=== PATIENT | male | born 1955 | race Caucasian/White ===

== ENCOUNTER 2017-04-15 14:43 | Emergency (ER) | payer MEDICAID ==
--- NOTE | 2017-04-15 14:47 | EDPHY ---
H & P HPI/ROS: HPI CHIEF COMPLAINT: Medical clearance for long-term, possible feet infection, possible lice HISTORY OF PRESENT ILLNESS: Patient very pleasant 61-year-old male he is homeless, he is here for medical clearance for long-term, presents for possible foot infection and bug infestation. Patient states that he may have bugs on him. Additionally he states that his feet are caked dirt possible feces. He does state his feet hurt him when he walks. He has no fever. He denies any significant past Past Medical History: Denies medical history denies taking any medications Past Surgical History: Denies surgical history Social History: States he has been home for 20 years. Family History: Noncontributory ROS REVIEW OF SYSTEMS: A comprehensive 10 point review of systems is otherwise negative aside from elements mentioned in the history of present illness. Exam Constitutional appears nontoxic, triage nursing summary reviewed, vital signs reviewed, awake/alert. Eyes normal conjunctivae and sclera, EOMI, PERRLA. HENT normal inspection, atraumatic, moist mucus membranes, no epistaxis, neck supple/ no meningismus, no raccoon eyes. Respiratory clear to auscultation bilaterally, normal breath sounds, no respiratory distress, no wheezing. Cardiovascular rate normal, regular rhythm, no murmur, no edema, distal pulses normal. Gastrointestinal soft, non-tender, no rebound, no guarding, normal bowel sounds, no distension, no pulsatile mass. Genitourinary no CVA tenderness. Musculoskeletal no midline vertebral tenderness, full range of motion, no calf swelling, no tenderness of extremities, no meningismus, good pulses, neurovascularly intact. Skin I do not appreciate any bugs on exam, pink, additionally bilateral feet there is dirt and possible feces caked in between his toes. There is some mild erythema to both of his feet. They. Mildly swollen. No crepitus. No signs of abscess. No pus. Neurologic awake, alert and oriented x 3, AAOx3, moves all 4 extremities equally, motor intact, sensory intact, CN II-XII intact, normal cerebellar, normal vision, normal speech. Psychiatric normal mood/affect. Heme/Lymph/Immune no lymphadenopathy. Differential Diagnosis: Includes but is not limited to in a particular order bilateral feet cellulitis, bilateral foot infection, possible bug infestation Medical Decision Making: Plan for this patient will start on Keflex, clean his feet soaked with warm soapy water and lateral clean them, additionally recommend De con shower and possible permethrin cream. Source: Patient, Police - Medical/Surgical History Hx Asthma: No Hx Chronic Respiratory Disease: No Hx Diabetes: No Hx Cardiac Disease: No Hx Renal Disease: No Hx Cirrhosis: No Hx Alcoholism: Yes Hx HIV/AIDS: No Hx Splenectomy or Spleen Trauma: No Other PMH: ETOH abuse, L eye cataracts - Social History Smoking Status: Current every day smoker Allergies/Adverse Reactions: No Known Allergies Allergy (Unverified 08/19/15 22:22) Home Medications: Medication Instructions Recorded Cephalexin [Keflex] 500 mg PO Q6H #28 cap 04/15/17 Departure - Departure Disposition: Home, Routine, Self-Care Clinical Impression: Cellulitis Qualifiers: Site of cellulitis: extremity Site of cellulitis of extremity: lower extremity Laterality: unspecified laterality Qualified Code(s): L03.119 - Cellulitis of unspecified part of limb Condition: Good Instructions: Cellulitis (ED) Additional Instructions: 1. Medically cleared for long-term. 2. Keflex as prescribed. 3. Return to the emergency room if worsening symptoms questions or concerns. Prescriptions: Cephalexin [Keflex] 500 mg PO Q6H #28 cap
[2017-04-15] MEDS ORDERED: CEPHALEXIN 500 MG CAP PO ONE (14:56)
[2017-04-15] MEDS ORDERED: PERMETHRIN 5% 60 GM CREAM TP ONE (14:56)
== END 2017-04-15 16:00 | disposition home or self-care (01) ==
DX: L03.119 Cellulitis of unspecified part of limb (principal); F17.200 Nicotine dependence, unspecified, uncomplicated

== ENCOUNTER 2017-06-08 18:35 | Emergency (ER) | payer MEDICAID ==
--- NOTE | 2017-06-08 18:53 | EDPHY ---
H & P Time Seen by Provider: 06/08/17 18:39 HPI/ROS: CHIEF COMPLAINT: Alcohol intoxication HISTORY OF PRESENT ILLNESS: 61-year-old homeless male presents to the emergency department by ambulance with acute alcohol intoxication. The patient admits to drinking alcohol today. Denies any other illicit drug use. No reported trauma. He currently has no complaints. Denies a headache. Denies neck or back pain. Denies chest pain or difficulty breathing. He denies abdominal pain, vomiting or diarrhea. REVIEW OF SYSTEMS: Constitutional: No fever, no chills. Eyes: No double or blurry vision. ENT: No sore throat. Respiratory: No cough, no shortness of breath. Cardiac: No chest pain. Gastrointestinal: No abdominal pain, vomiting or diarrhea. Genitourinary: No dysuria. Musculoskeletal: No neck or back pain. Skin: No rashes. Neurological: No headache. Past Medical/Surgical History: Alcoholism Social History: Homeless Smoking Status: Current every day smoker Physical Exam: General Appearance: Alert, no distress. Smells strongly of alcohol. No visible signs of trauma to his head. Eyes: Pupils equal and round. Extraocular motions are all intact. ENT: Mouth: Mucous membranes moist. Respiratory: No wheezing, rhonchi, or rales, lungs are clear to auscultation. Cardiovascular: Regular rate and rhythm. Gastrointestinal: Abdomen is soft and nontender, no masses, no rebound or guarding, bowel sounds normal. Neurological: Uncooperative, cannot determine. Skin: Warm and dry, no rashes. Musculoskeletal: Nontender to palpate along the cervical, thoracic or lumbar spine. Neck is supple. Extremities: Full range of motion and no peripheral edema. Psychiatric: no agitation. Constitutional: Initial Vital Signs Heart Rate 81 06/08/17 20:08 Respiratory Rate 16 06/08/17 20:08 Blood Pressure 114/62 06/08/17 20:08 O2 Sat (%) 94 06/08/17 20:08 O2 Delivery Mode Room Air Allergies/Adverse Reactions: No Known Allergies Allergy (Unverified 08/19/15 22:22) Home Medications: Medication Instructions Recorded NK [No Known Home Meds] 06/08/17 Medical Decision Making ED Course/Re-evaluation: 61-year-old homeless male presents to the emergency department with acute alcohol intoxication. No visible signs of trauma. The was observed for several hours in the emergency department without incident. He was able to ambulate upon discharge and will be discharged to the addiction [facility]. Differential Diagnosis: Altered mental status including but not limited to hypoglycemia, infectious process, electrolyte abnormality, head injury and intoxicants. Departure - Departure Disposition: Home, Routine, Self-Care Clinical Impression: Alcoholic intoxication Qualifiers: Complication of substance-induced condition: uncomplicated Qualified Code(s): F10.920 - Alcohol use, unspecified with intoxication, uncomplicated Condition: Good Instructions: Alcohol Intoxication (ED), Chlordiazepoxide (By mouth) Additional Instructions: You should not drink alcohol in excess. Referrals: [facility] [Outside] - As per Instructions
[2017-06-08 20:09] VITALS: RESP 16
[2017-06-08 22:42] VITALS: BP 116/62; PULSE 72; O2SAT 92
[2017-06-08] MEDS ORDERED: CHLORDIAZEPOXIDE 25MG PREPK#6 BTL TAKEHOME ONE (23:04)
== END 2017-06-08 23:26 | disposition home or self-care (01) ==
LOC: EDUNIT#
DX: F10.920 Alcohol use, unspecified with intoxication, uncomplicated (principal); F17.200 Nicotine dependence, unspecified, uncomplicated

== ENCOUNTER 2018-04-21 15:37 | Inpatient (IN) | payer MEDICAID ==
[2018-04-21] MEDS ORDERED: TDAP ADULT 0.5 ML INJ (BOOSTRIX) IM ONE (17:19)
--- NOTE | 2018-04-21 17:25 | EDPHY ---
General - History Smoking Status: Current every day smoker Time Seen by Provider: 04/21/18 17:05 Narrative: CLINICAL IMPRESSION: Osteomyelitis of the phalanges of the right foot ASSESSMENT/PLAN: 62-year-old homeless alcoholic male presents to the emergency department with 1 month of right foot pain, and necrosis of the right 1st through 4th toes in the last 2 weeks. Patient reports intact although slightly diminished sensation to the toes. He reports inflammation and redness through the of right forefoot. No associated fever or chills. He is homeless, sleeps outside and ambulates regularly. No history of diabetes or prior osteomyelitis or amputation. Vital signs stable, no tachycardia, fever, or sign of sepsis. On exam, patient has necrosis to the volar pad of 1st through 3rd digits of the right foot with circumferential ulcerative tissue. Redness and swelling extending through the MTPs and forefoot associated with tenderness to palpation. Patient reports intact sensation to the toes including necrotic tissue. X-rays concerning for osteomyelitis, follow-up MRI confirms osteomyelitis. Please see radiology report below. Patient has an elevated sed rate to 52, normal CRP, no leukocytosis. He was seen in the emergency department and examined by Dr. Nieto who removed debrided tissue. IV antibiotics initiated in the ED and plan to elevate the foot, cover wounds with Bactroban, and determine if infection will improve with IV antibiotics versus obtaining orthopedic consultation for possible Lisfranc amputation. Patient was stabilized in the ED and admitted to the hospitalist service. Discussed with Dr. Mackey DIFFERENTIAL DX: Differential includes but not limited to acute necrotic frostbite, trench foot, osteomyelitis ED PROCEDURES: See lab and/or imaging results below ED COURSE: 5:20 p.m. patient seen examined by myself. Plan for x-ray, labs, surgical consultation. Will update patient's tetanus. 5:40 p.m.. Preliminary review of x-rays by myself with possible osteo noted to the distal right 2nd and 4th phalanx. 6:00 p.m.: Patient updated on x-ray results. MRI ordered. Patient requesting pain medication. No allergies reported. 6:15 p.m.: Labs reviewed. Sed rate 52, CRP 6, no leukocytosis, mild hyponatremia without symptoms. Awaiting MRI. Will consult Dr. Nieto. 6:25 p.m.: Case discussed with Dr. Nieto who is in the emergency department and will assess the patient. MRI discussed with Dr. Roberts, positive for osteomyelitis of the distal and middle phalanx of digits 1 through 4 on the right foot. Discussed with Dr. Nieto and hospitalist for admission. IV vancomycin ordered. Dr. Muñoz asked patient to admit to Dr. Mcgregor. CHIEF COMPLAINT: Frostbite right foot HPI: This is a 62-year-old homeless gentleman presenting to the emergency department with frostbite to the right 1st through 3rd toes. Patient reports he developed pain and swelling to these toes and the foot approximately 1 month ago. He was not seen by anyone. Two weeks ago he began noticing black discoloration to the tips of toes 1 through 3. His friend convinced him to come to the ER today. He reports no prior history of severe frostbite or amputation. He reports no history of diabetes. He currently takes no medications. He stopped drinking 2 weeks ago. He has been walking daily. He is not currently working. He does not know if his tetanus is up-to-date. He reports sensation to the toes and states sometimes "they feel like they are on fire". No reported numbness. No fevers, chills, red streaks up the legs, palpitations nausea or vomiting. PAST MEDICAL HISTORY: None reported See nurse/triage notes for additional history if applicable Pertinent Past Surgical History: None reported Family History: Noncontributory Social History: Homeless, sleeps outside, reports he quit drinking 2 weeks ago REVIEW OF SYSTEMS: All other systems negative Constitutional: No fever, no chills, appetite change. Cardiovascular: No chest pain, no palpitations. Respiratory: No cough, no shortness of breath. Gastrointestinal: No abdominal pain, no vomiting, diarrhea. Musculoskeletal: No back pain, positive for joint swelling, positive for joint pain, myalgias. Skin: No rashes, positive for color change. Neurological: No headache, dizziness, weakness. PHYSICAL EXAM: General Appearance: Alert, oriented, appropriate, cooperative, homeless, filthy , foul-smelling feet, NAD, well hydrated, non-toxic appearing, VSS, no hypoxia. Respiratory: There are no retractions, lungs are clear to auscultation. Cardiac: Regular rate and rhythm, no murmurs or gallops. Gastrointestinal: Abdomen is soft, nontender, bowel sounds normal, no masses/ hernia, no rigidity, guarding or focal peritoneal findings. Neurological: [ Alert and oriented x 3, patient reports intact sensation to right foot and all toes. Skin: Tissue necrosis noted to the volar pads of toes 1 through 3 on the right foot. Patient reports associate sensation to light touch and discomfort to palpation. Necrotic area is surrounded by shallow ulcers with erythema and purulent discharge. Cap refill 2 sec in all toes of both feet. No active bleeding. No lymphangitis. Posterior tibialis and pedal pulses intact bilaterally. No evidence of frostbite injury to the left foot. Right foot generally appears more swollen than left. Patient reports pain extending all the way to the MTP joints on the bottom of the foot. Musculoskeletal: Extremities are symmetrical, full range of motion, see above findings Psychiatric: Patient is oriented X 3, there is no agitation. MEDICAL DECISION MAKING: Patient was seen independently. Secondary supervising physician at time of evaluation was Dr. Mackey . Diagnosis: Osteomyelitis, toes of right foot. New, requires workup Summary: See Assessment and Plan for summary of ED visit Clinical lab tests: ordered / reviewed. Independent visualization of images, tracing, or specimens: Yes. Decision to obtain medical records or history from someone other than the patient: No Review / Summarize previous medical records: No Discussed patient with another provider: Dr. Mackey, Dr. Nieto, hospitalist, radiology Patient Progress: Stable for admission. (Nash Antony) Medical Decision Making: I did not see this patient while he was in the emergency department. However his care was discussed with the PA while the patient was in the department. I agree with treatment plan and management (Chau Mackey) - Diagnostics Imaging Results: Imaging Impressions Foot X-Ray 04/21/18 17:19 Impression: Equivocal evidence for a small area of osteomyelitis involving the second distal phalanx possible osteomyelitis of the fourth distal phalanx. - Objective Vital Signs: Initial Vital Signs Temperature (C) 36.3 C 04/21/18 15:44 Heart Rate 85 04/21/18 15:44 Respiratory Rate 16 04/21/18 15:44 Blood Pressure 138/83 H 04/21/18 15:44 O2 Sat (%) 95 04/21/18 15:44 O2 Delivery Mode Room Air Allergies/Adverse Reactions: No Known Allergies Allergy (Verified 04/21/18 20:54) Home Medications: Medication Instructions Recorded NK [No Known Home Meds] 06/08/17 Laboratory Results: Laboratory Results 04/21/18 17:40 04/21/18 17:40 04/21/18 04/21/18 17:40 17:40 WBC 8.10 10^3/uL 10^3/uL (3.80-9.50) RBC 4.59 10^6/uL 10^6/uL (4.40-6.38) Hgb 11.0 g/dL L g/dL (13.7-17.5) Hct 35.5 % L % (40.0-51.0) MCV 77.3 fL L fL (81.5-99.8) MCH 24.0 pg L pg (27.9-34.1) MCHC 31.0 g/dL L g/dL (32.4-36.7) RDW 20.0 % H % (11.5-15.2) Plt Count 347 10^3/uL 10^3/uL (150-400) MPV 9.2 fL fL (8.7-11.7) Neut % (Auto) 64.3 % % (39.3-74.2) Lymph % (Auto) 25.9 % % (15.0-45.0) Catron % (Auto) 7.4 % % (4.5-13.0) Eos % (Auto) 1.6 % % (0.6-7.6) Baso % (Auto) 0.7 % % (0.3-1.7) Nucleat RBC Rel Count 0.0 % % (0.0-0.2) Absolute Neuts (auto) 5.20 10^3/uL 10^3/uL (1.70-6.50) Absolute Lymphs (auto) 2.10 10^3/uL 10^3/uL (1.00-3.00) Absolute Monos (auto) 0.60 10^3/uL 10^3/uL (0.30-0.80) Absolute Eos (auto) 0.13 10^3/uL 10^3/uL (0.03-0.40) Absolute Basos (auto) 0.06 10^3/uL 10^3/uL (0.02-0.10) Absolute Nucleated RBC 0.00 10^3/uL 10^3/uL (0-0.01) Immature Gran % 0.1 % % (0.0-1.1) Immature Gran # 0.01 10^3/uL 10^3/uL (0.00-0.10) ESR 52 MM/HR H MM/HR (0-20) Sodium 132 mEq/L L mEq/L (135-145) Potassium 5.2 mEq/L mEq/L (3.5-5.2) Chloride 99 mEq/L mEq/L (97-110) Carbon Dioxide 25 mEq/l mEq/l (22-31) Anion Gap 8 mEq/L mEq/L (6-14) BUN 13 mg/dL mg/dL (7-23) Creatinine 0.8 mg/dL mg/dL (0.7-1.3) Estimated GFR > 60 Glucose 89 mg/dL mg/dL (70-100) Calcium 9.5 mg/dL mg/dL (8.5-10.4) C-Reactive Protein 6.0 mg/L mg/L (<10.0) Medications Given: Vancomycin HCl 2 gm/ Sodium (Chloride) 500 mls @ 250 mls/hr IV EDNOW ONE PRN Reason: Protocol Stop: 04/21/18 22:39 Last Admin: 04/21/18 20:47 Dose: 500 mls Discontinued Medications Diphtheria/Tetanus/Acell Pertussis (Boostrix) 0.5 ml IM .ONCE ONE Stop: 04/21/18 17:20 Last Admin: 04/21/18 17:38 Dose: 0.5 ml Fentanyl (Sublimaze) 50 mcg IVP EDNOW ONE Stop: 04/21/18 18:01 Last Admin: 04/21/18 18:28 Dose: 50 mcg Fentanyl (Sublimaze) 100 mcg IVP EDNOW ONE Stop: 04/21/18 20:39 Last Admin: 04/21/18 20:42 Dose: 100 mcg Ketorolac Tromethamine (Toradol) 15 mg IVP EDNOW ONE Stop: 04/21/18 18:01 Last Admin: 04/21/18 18:28 Dose: 15 mg
[2018-04-21 17:55] LABS: PLATELET COUNT 347 10^3/uL (150-400)
[2018-04-21] MEDS ORDERED: KETOROLAC 15 MG/1 ML SDV IVP ONE (18:00)
[2018-04-21] MEDS ORDERED: fentaNYL 100 MCG/2 ML INJ IVP ONE ×2 (18:00→20:38)
[2018-04-21] MEDS ORDERED: GADOBUTROL 10 ML VIAL IVP ONE (19:14)
[2018-04-21] MEDS ORDERED: VANCOMYCIN 2 GM in NS 500 ML IV ONE (20:40)
[2018-04-21] MEDS ORDERED: VANCOMYCIN 1 GM/NS 250 ML BAG IV ONE ×2 (20:40→20:41)
--- NOTE | 2018-04-21 21:49 | GCON ---
[f rep st] CONSULTATION REFERRING PHYSICIAN: HEATHER MILLER PA-C HISTORY: The patient is a 62-year-old male smoker, who is homeless. He presents to the emergency department with mummification of the tips of the 1st through 3rd toes. He says he developed pain in the toes approximately 1 month ago, and he has not been seen for evaluation. A friend convinced him to come to the ER today. There is no history of diabetes. He is not currently taking medications. He did stop drinking 2 weeks ago. He did smoke 1 cigarette a day. PHYSICAL EXAMINATION: There is a large, necrotic, foul-smelling tip of his right great toe. By x-ray, there is gas in the tissue. The distal toe and phalanx are easily amputated at the bedside at the distal interphalangeal joint. Minimal blood loss occurs. There is good capillary refill noted. This wound is dressed with topical antibiotic and a dry dressing. The 2nd digit also was easily amputated at the level of the distal interphalangeal joint. Again, a topical antibiotic was used. The 3rd digit appears to have some tissue loss but not to the same extent. It is not further debrided at this point. An MRI has been performed, which shows osteo of the distal phalanx of digits 1-4 ; middle digit phalanx 2, 3 and 4; and proximal phalanx 2 and 3. I recommend that we push his oxygen saturations to 98%, that we use topical Bactroban for its penetration abilities, that we use IV antibiotics (I will defer to Infectious Disease). I would like to save as much of the forefoot for him as we can, but I am afraid he may need an amputation at the level of metatarsals for definitive treatment and closure. I will not make that move yet. We will wait to see how he declares himself with the antibiotic therapy as I am concerned that he will need to walk on this foot before complete healing occurs resulting in an infection/return for more proximal amputation. /[id number]/MODL MTDD
[2018-04-21] MEDS ORDERED: ACETAMINOPHEN 325 MG TAB PO PRN (22:30)
[2018-04-21] MEDS ORDERED: ONDANSETRON 4 MG/2 ML VIAL IVP PRN (22:30)
[2018-04-21] MEDS ORDERED: ONDANSETRON DISINTEGRATING 4 MG TAB PO PRN (22:30)
--- NOTE | 2018-04-22 05:19 | PDGENHP ---
History and Physical - Chief Complaint Foot pain - History of Present Illness 62 yo M, homeless M presents with R foot pain. He has been suffering from pain to the toes of R foot for several weeks. He denies PMHx and takes no medications. He tells me he tried to get evaluated as an outpatient but could not get seen at a clinic. On arrival several of his R foot toes appear infected and necrotic. XR and MRI were concerning for osteomyelitis. He was evaluated by Dr. Nieto of general surgery who I&D his foot at bedside. The patient himself denies fevers and chills. His only complaint at the moment is R foot pain. He is being admitted for IV antibiotics and ID consultation. Case discussed with ED TROY Antony; records reviewed and summarized above. History Information - Allergies/Home Medication List Allergies/Adverse Reactions: No Known Allergies Allergy (Verified 04/21/18 20:54) Home Medications: NK [No Known Home Meds] 06/08/17 [Last Taken Unknown] I have personally reviewed and updated: medical history - Past Medical History no pertinent PMH - Surgical History Additional surgical history: L 3rd finger distal amputation. L leg fracture - Family History Additional family history: Asked, denies - Social History Smoking Status: Current every day smoker Review of Systems Review of Systems: ROS: 10pt was reviewed & negative except for what was stated in HPI & below Physical Exam Physical Exam: Temp Pulse Resp BP Pulse Ox 36.3 C 68 16 119/96 H 99 04/21/18 15:44 04/22/18 03:25 04/22/18 03:25 04/21/18 22:17 04/22/18 03:25 O2 (L/minute) 2 Constitutional: uncomfortable, unkempt Eyes: PERRL, EOMI Ears, Nose, Mouth, Throat: no oral mucosal ulcers Cardiovascular: regular rate and rhythym, no murmur, rub, or gallop Respiratory: no respiratory distress, clear to auscultation Gastrointestinal: normoactive bowel sounds, soft, non-tender abdomen Skin: warm, other (R foot toes bandaged) Musculoskeletal: full muscle strength, no muscle tenderness Neurologic: AAOx3, CN II-XII Intact Psychiatric: interacting appropriately, not anxious Lab Data & Imaging Review 04/21/18 17:40 04/21/18 17:40 WBC 8.10 10^3/uL (3.80-9.50) 04/21/18 17:40 RBC 4.59 10^6/uL (4.40-6.38) 04/21/18 17:40 Hgb 11.0 g/dL (13.7-17.5) L 04/21/18 17:40 Hct 35.5 % (40.0-51.0) L 04/21/18 17:40 MCV 77.3 fL (81.5-99.8) L 04/21/18 17:40 MCH 24.0 pg (27.9-34.1) L 04/21/18 17:40 MCHC 31.0 g/dL (32.4-36.7) L 04/21/18 17:40 RDW 20.0 % (11.5-15.2) H 04/21/18 17:40 Plt Count 347 10^3/uL (150-400) 04/21/18 17:40 MPV 9.2 fL (8.7-11.7) 04/21/18 17:40 Neut % (Auto) 64.3 % (39.3-74.2) 04/21/18 17:40 Lymph % (Auto) 25.9 % (15.0-45.0) 04/21/18 17:40 [place] % (Auto) 7.4 % (4.5-13.0) 04/21/18 17:40 Eos % (Auto) 1.6 % (0.6-7.6) 04/21/18 17:40 Baso % (Auto) 0.7 % (0.3-1.7) 04/21/18 17:40 Nucleat RBC Rel Count 0.0 % (0.0-0.2) 04/21/18 17:40 Absolute Neuts (auto) 5.20 10^3/uL (1.70-6.50) 04/21/18 17:40 Absolute Lymphs (auto) 2.10 10^3/uL (1.00-3.00) 04/21/18 17:40 Absolute Monos (auto) 0.60 10^3/uL (0.30-0.80) 04/21/18 17:40 Absolute Eos (auto) 0.13 10^3/uL (0.03-0.40) 04/21/18 17:40 Absolute Basos (auto) 0.06 10^3/uL (0.02-0.10) 04/21/18 17:40 Absolute Nucleated RBC 0.00 10^3/uL (0-0.01) 04/21/18 17:40 Immature Gran % 0.1 % (0.0-1.1) 04/21/18 17:40 Immature Gran # 0.01 10^3/uL (0.00-0.10) 04/21/18 17:40 ESR 52 MM/HR (0-20) H 04/21/18 17:40 Sodium 132 mEq/L (135-145) L 04/21/18 17:40 Potassium 5.2 mEq/L (3.5-5.2) 04/21/18 17:40 Chloride 99 mEq/L (97-110) 04/21/18 17:40 Carbon Dioxide 25 mEq/l (22-31) 04/21/18 17:40 Anion Gap 8 mEq/L (6-14) 04/21/18 17:40 BUN 13 mg/dL (7-23) 04/21/18 17:40 Creatinine 0.8 mg/dL (0.7-1.3) 04/21/18 17:40 Estimated GFR > 60 04/21/18 17:40 Glucose 89 mg/dL (70-100) 04/21/18 17:40 Calcium 9.5 mg/dL (8.5-10.4) 04/21/18 17:40 C-Reactive Protein 6.0 mg/L (<10.0) 04/21/18 17:40 Imaging Review: Imaging Impressions Foot X-Ray 04/21/18 17:19 Impression: Equivocal evidence for a small area of osteomyelitis involving the second distal phalanx possible osteomyelitis of the fourth distal phalanx. Assessment & Plan Assessment: 62 yo M presents with osteomyelitis of the R foot. Plan: 1. R foot osteomyelitis - XR and MRI suggestive of osteomyelitis in various toes of the R foot. He is now s/p I&D by Dr. Nieto of general surgery. He denies systemic symptoms at this time. - Started on vancomycin in the ED; will continue - ID consultation placed - Appreciate general surgery consultation - Blood cultures ordered 2. Hyponatremia - Mild, monitor BMP. 3. Microcytic anemia - No evidence of acute bleeding. - Will check ferritin - Monitor CBC 4. Hx methamphetamine use - Denies recent use Diet - Regular Code - Full Ppx - SCDs Dispo - Admit under inpatient status
[2018-04-22 06:54] LABS: PLATELET COUNT 290 10^3/uL (150-400)
--- NOTE | 2018-04-22 09:00 | PDCONSULT ---
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 Good pink granulating tissue noted this morning. Plan: ID to see. Hope to optimize care with topical Bactroban and IV antibiotics. If osteo can be effectively treated, it would be optimal. In the short term, decreasing local infection will optimize foot for amputation success. Follow CRP,CBC No nicotine. Elevate foot. Push SAT to 98%
[2018-04-22] MEDS: oxyCODONE IR 5 MG TAB PO PRN ×3 (09:25→21:21)
--- NOTE | 2018-04-22 10:39 | PDMN ---
Medical Necessity Medical necessity: Pt meets IP criteria as of 04/21/2018 per and MCG M-600 ( osteomyelitis); est los > 2 mn for ongoing tx and management of R foot osteomyelitis in the setting of homelessness and ETOH abuse; likely requiring amputation, but surgical team has done a bedside I&D and would like to try IV ABX first, also requiring ID consultation, wound care, serial labs and pain control.
--- NOTE | 2018-04-22 12:24 | ASMTCMCOM ---
CM Note CM Note Notes: Patient sent to ED by [facility] RN for possible osteomyelitis. ED report confirms this. Bedside I&D and excision on mummified distal phalanx digits 1&2 performed. ID, Surgery, and perhaps Ortho to see. [place] of foot TBD. I spoke with patient. He reports he's been sleeping outside for 20 years. He has not engaged w any sheltering services d/t rumors of bedbugs ([facility]) and thieves ([facility]). He would rather sleep outside in the places he's established. He notes Francis at [facility] as someone he trusts, and he also is known to the [facility] HOT officer [place]. Regarding his current condition, he does not feel that it will be a problem to manage his foot on the streets. He also reports that he is to have cataract surgery soon. I suggested that a SNF might be perfect to give him time to rehab his foot and his eyes. He was not interested. He seems deeply distrustful of homeless services. Case Management will continue to offer resources to patient; otherwise, we will ensure that he has what he needs to return to the streets. Date Signed: 04/22/2018 12:23 PM Electronically Signed By:Amanda Rod RN
[2018-04-22] MEDS: MUPIROCIN 2% 22 GM OINT TP SCH ×3 (13:40→21:18)
--- NOTE | 2018-04-22 15:10 | PDCONSULT ---
Speech Pathology Supervisor Note: Infectious Diseases Consult Note Impression: 62-year-old man with multiple digits of the right foot with chronic osteomyelitis. He underwent amputation of that clearly necrotic regions yesterday. Will continue therapy with oral Bactrim and monitor his electrolytes daily to ensure tolerance. With those homeless status this is an antibiotic these likely be going to be able to obtain to complete therapy. 1. Right great toe, right 2nd toe, right 4th toe distal osteomyelitis and necrosis 2. 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 Status post right 2nd toe distal phalanx amputation 04/21/2018 4. Homelessness Plan: 1. Start Bactrim 2 double strength twice daily 2. Check daily electrolytes to ensure hyperkalemia does not develop Phu Guadarrama MD Infectious Diseases Chief Complaint: Necrotic toes on right foot Requesting Provider: Dr. Mcgregor Reason for Referral: Consultation was requested by Dr. Mcgregor regarding antimicrobial management. HPI: 62-year-old man who presented to the emergency department approximately 2 weeks after the onset of right foot pain on the plantar aspect of his foot. He knows that he had no issues with his right foot prior to 2 weeks ago. He notes progressive worsening of the pain in the right foot with ambulation, even to the point where it was painful at rest. He does not recall precisely when he noted the ends of his right great toe in his right 2nd toe developed a black area over the end. He notes he had been wearing leather boots without ventilation so does not suspect that this was related to frostbite. He notes no fevers, chills, or night sweats leading up to admission. He has not taken any antibiotics in the last 60 days. But he does state he took large antibiotic pills for skin infection on his arm sometime in the last year. He underwent debridement of the right foot in the emergency department with amputation of the distal phalanx and distal great toe, S 2nd toe amputated at the distal interphalangeal joint. He notes minimal pain today after undergoing those procedures. He has no other complaints today. Past Medical History: No chronic medical conditions for which he takes medications Past Surgical History: Left leg orthopedic fixation of a compound fracture; no surgeries to the right foot prior to this admission Social History: Stop drinking alcohol approximately 2 weeks before admission, smokes occasional cigarette, both smokes and ingests marijuana products, no IV drug use; he is homeless Family History: No family members with recurrent infections Allergies: NKDA Medications: Reviewed in medical record and confirmed with patient. ROS: 10 organ systems reviewed; pertinent positives and negatives listed in the HPI, all other organ systems negative. Physical Exam: VS: Reviewed Gen: No acute distress; Breathing comfortably without exogenous oxygen; Able to speak in complete sentences Eyes: No conjunctival injection; No scleral icterus HENT: No gross deformities Neck: No limitation in range of motion Pulm: Breath sounds clear to the bases bilaterally; No wheeze, rhonchi, or rales CV: Normal S1 and S2; Regular rate and rhythm; No murmurs, rubs, or gallops; No lower extremity edema Abd: Not distended; Normo-active bowel sounds; Soft; Non-tender Skin: A full skin exam including exposed bilateral upper extremities, bilateral lower extremities to the knees, face, neck, abdomen, chest, and back performed; Skin intact, warm, with no rash MSK: Joints without erythema or edema; No gross limitation in range of motion; right foot surgical dressing not taken down Ext: No clubbing or cyanosis Neuro: Awake and alert Psych: Normal mood and affect Labs/Imaging: All microbiology testing (culture and non-culture) reviewed in the medical record. Personally reviewed and interpreted the images of the following radiographs: Right foot x-ray showing likely osteomyelitis of the distal phalanx of the 2nd and 4th toes, soft tissue edema of the right great toe. Medications Generic Name Dose Route Start Last Admin Trade Name Freq PRN Reason Stop Dose Admin Trimethoprim/Sulfamethoxazole 2 ea 04/22/18 21:00 Bactrim Ds PO 05/22/18 20:59 BID NOBLE Protocol Discontinued Medications Generic Name Dose Route Start Last Admin Trade Name Freq PRN Reason Stop Dose Admin Vancomycin HCl 2 gm/ Sodium 500 mls @ 250 mls/hr 04/21/18 20:40 04/21/18 20: 47 Chloride IV 04/21/18 22:39 500 mls EDNOW ONE Protocol Vancomycin/Sodium Chloride Confirm 04/21/18 20:40 Vancomycin 1 Gm (Premix) Administered 04/21/18 20:41 Dose 1 gm IV .STK-MED ONE Vancomycin/Sodium Chloride Confirm 04/21/18 20:41 Vancomycin 1 Gm (Premix) Administered 04/21/18 20:42 Dose 1 gm IV .STK-MED ONE Laboratory Tests 04/21/18 04/21/18 04/22/18 17:40 17:40 06:30 WBC 8.10 5.68 Hgb 11.0 L 10.1 L Plt Count 347 290 Absolute Neuts (auto) 5.20 3.17 Absolute Lymphs (auto) 2.10 1.68 ESR 52 H Creatinine 0.8 Ferritin C-Reactive Protein 6.0 04/22/18 06:30 WBC Hgb Plt Count Absolute Neuts (auto) Absolute Lymphs (auto) ESR Creatinine 0.8 Ferritin 13.9 L C-Reactive Protein Ongoing monitoring for antimicrobial toxicity with: CBC, BMP.
[2018-04-22] MEDS ORDERED: hydrALAZINE 20 MG/ML VIAL IVP PRN (15:26)
--- NOTE | 2018-04-22 15:57 | HOSPPROG ---
Hospitalist Progress Note Assessment/Plan: 62 yo M presents with osteomyelitis of the R foot. Plan: 1. R foot osteomyelitis - XR and MRI suggestive of osteomyelitis in various toes of the R foot. He is now s/p I&D by Dr. Nieto of general surgery. He denies systemic symptoms at this time. - Started on vancomycin in the ED; stopped by ID, started on bactrim 2 tabs po bid. - ID consulted, who recommends bactrim, monitor cultures. - Appreciate general surgery consultation - Blood cultures ordered -monitor K while on high dose bactrim. 2. Hyponatremia - Mild, monitor BMP. 3. Microcytic anemia - No evidence of acute bleeding. - Will check ferritin - Monitor CBC 4. Hx methamphetamine use - Denies recent use Diet - Regular Code - Full Ppx - SCDs Dispo - Admit under inpatient status Subjective: right foot hurts. Objective: Vital Signs Temp Pulse Resp BP Pulse Ox 36.9 C 72 16 149/87 H 98 04/22/18 15:44 04/22/18 15:44 04/22/18 15:44 04/22/18 15:44 04/22/18 15:44 Laboratory Results 04/22/18 06:30 04/22/18 06:30 04/21/18 04/22/18 04/23/18 05:59 05:59 05:59 Intake Total 500 Balance 500 - Physical Exam Constitutional: no apparent distress, appears nourished, not in pain Eyes: PERRL, anicteric sclera, EOMI Ears, Nose, Mouth, Throat: moist mucous membranes, hearing normal, ears appear normal, no oral mucosal ulcers Cardiovascular: regular rate and rhythym, no murmur, rub, or gallop Respiratory: no respiratory distress, no rales or rhonchi, clear to auscultation Gastrointestinal: normoactive bowel sounds, soft, non-tender abdomen, no palpable masses Genitourinary: no bladder fullness, no bladder tenderness, no renal bruits Skin: no rashes or abrasions, no fluctuance, no induration Musculoskeletal: full muscle strength, no muscle tenderness, normal joint ROM, other (right foot bandaged. ) Neurologic: AAOx3, sensation intact bilaterally Psychiatric: interacting appropriately, not anxious, not encephalopathic, thought process linear Lymph, Heme, Immunologic: no cervical LAD, no supraclavicular LAD ICD10 Worksheet Patient Problems: Problems Problem Status Onset Osteomyelitis Acute - ICD10 Problem Qualifiers (1) Osteomyelitis
[2018-04-22] MEDS: SULFAMETHOX/TMP 800/160 MG 1 TAB PO SCH (21:17)
[2018-04-23] MEDS: oxyCODONE IR 5 MG TAB PO PRN ×3 (09:06→21:37)
[2018-04-23] MEDS: SULFAMETHOX/TMP 800/160 MG 1 TAB PO SCH ×2 (09:07→21:31)
--- NOTE | 2018-04-23 10:09 | HOSPPROG ---
Hospitalist Progress Note Assessment/Plan: DIAGNOSES: * acute osteomyelitis of R toes * iron deficiency anemia - new dx at this time -no abd of gi/digestive sxs * HTN * tobacco abuse, suspect copd likely present * homelessness PLANS: * continue antibiotics per ID * wound care * will need repeat imaging over time/? if will need amputation * begin IV iron supplement and transition to po * Repeat CBC and sed rate * GI consult * will start lisinopril for HTN I examined the patient today together at the bedside with Dr. Nieto, as well as with the wound care nurse SUBJECTIVE: Minimal pain Otherwise feels well Denies any loose or greasy stools, or any other signs of malabsorption Denies any known bleeding OBJECTIVE Vitals reviewed: Blood pressures remain overall bit high, otherwise stable without fever Elastic Attacher Coverstitch, my review: Exam: alert oriented relaxed skin warm dry color ok resps not labored lungs clear BSs heart regular abd soft nondistended nontender, bowel sounds present limbs warm, no edema; wounds on the 1st 2nd and 3rd toes of the right foot distally with some granulation still some adherent yellowish wet discharge, nothing that appears necrotic iv site ok Lab data: Sodium at 132, rest of metabolic panel normal Ferritin low at 13.9 Objective: Vital Signs Temp Pulse Resp BP Pulse Ox 36.9 C 70 17 158/80 H 91 L 04/23/18 07:48 04/23/18 07:48 04/23/18 07:48 04/23/18 07:48 04/23/18 07:48 Laboratory Results 04/22/18 06:30 04/23/18 04:44 04/22/18 04/23/18 04/24/18 06:59 06:59 06:59 Intake Total 500 240 Output Total 900 400 Balance -400 -160 - Time Spent With Patient Time Spent with Patient: greater than 35 minutes Time Spent with Patient: Greater than 35 minutes spent on this patients care, greater than 50% of time spent counseling, educating, and coordinating care regarding the above mentioned plan. ICD10 Worksheet Patient Problems: Problems Problem Status Onset Osteomyelitis Acute
[2018-04-23] MEDS: MUPIROCIN 2% 22 GM OINT TP SCH ×3 (10:10→21:31)
--- NOTE | 2018-04-23 11:07 | PDCONSULT ---
Warehouse Production Worker Note: 04/23/2018 Assessment: Appears to be improving with local and systemic care. Granulation improving. pain significantly diminished Plan: Continue wound care with Bactroban topical antibiotics, obtain follow up foot xray. continue to push O2 SATs to 98% The concern about an amputation is that, as a homeless person, I am concerned about walking on the foot and subsequent wound breakdown/reinfection and further loss of forefoot/foot. I am hoping that local care can reverse the osteo and allow healing w/o amputation.
[2018-04-23] MEDS: SODIUM FERRIC GLUCONAT/SUCROSE 125 MG in NS 100 ML IV SCH (11:39)
[2018-04-23] MEDS: LISINOPRIL 10 MG TAB PO SCH ×2 (11:41→11:43)
--- NOTE | 2018-04-23 11:46 | PCMIDPN ---
Assessment/Plan: Assessment: 62-year-old man with multiple digits of right foot with chronic osteomyelitis status post debridement amputations. He has no contraindications to oral Bactrim and is tolerating this therapy well. Some medication that is well absorbed to the GI tract, and distributed very well to tissues including bone. Due to his homeless status this is a medication that he is more likely be a blue obtain an to stay on as an outpatient. 1. Right great toe, right 2nd toe, right 4th toe distal osteomyelitis and necrosis 2. 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 Status post right 2nd toe distal phalanx amputation 04/21/2018 4. Homeless Plan: 1. Continue Bactrim 2 double-strength tablets twice daily, if tolerated will need an increase in dose to reach approximately 10 milligrams/kilogram per day 2. Continue to check daily electrolytes to ensure potassium does not increase 3. Discussed in detail potential side effects Bactrim which could rash, antibiotic associated diarrhea, C diff colitis Phu Guadarrama MD Infectious Diseases 04/23/18 11:43 Subjective: No fever or chills over the past 24 hr. No nausea, abdominal pain, or diarrhea. Tolerating p. O. Intake well. No rash after starting Bactrim. He has a pain on the right foot is improved. No new concerns today. Objective: Vital Signs Temp Pulse Resp BP Pulse Ox 36.9 C 70 17 158/80 H 91 L 04/23/18 07:48 04/23/18 07:48 04/23/18 07:48 04/23/18 11:41 04/23/18 07:48 Laboratory Results 04/22/18 06:30 04/23/18 04:44 04/22/18 04/23/18 04/24/18 05:59 05:59 05:59 Intake Total 500 240 Output Total 900 400 Balance -400 -160 ESR 52 MM/HR (0-20) H 04/21/18 17:40 C-Reactive Protein 6.0 mg/L (<10.0) 04/21/18 17:40 Medications Generic Name Dose Route Start Last Admin Trade Name Freq PRN Reason Stop Dose Admin Trimethoprim/Sulfamethoxazole 2 ea 04/22/18 21:00 04/23/18 09:07 Bactrim Ds PO 03/17/19 20:59 2 ea BID NOBLE Protocol Microbiology 04/21/18 22:50 Blood Blood Culture - Preliminary 04/21/18 22:47 Blood Blood Culture - Preliminary Laboratory Tests 04/21/18 04/21/18 04/22/18 17:40 17:40 06:30 WBC 8.10 5.68 Hgb 11.0 L 10.1 L Plt Count 347 290 ESR 52 H Potassium 5.2 Creatinine 0.8 C-Reactive Protein 6.0 04/22/18 04/23/18 06:30 04:44 WBC Hgb Plt Count ESR Potassium 5.2 5.1 Creatinine 0.8 0.8 C-Reactive Protein - Physical Exam General Appearance: no apparent distress, non-toxic EENT: No scleral icterus Respiratory: lungs clear, No crackles, No wheezing Neck: full range of motion, supple Cardiac/Chest: regular rate, rhythm, No bradycardia, No tachycardia, No diastolic murmur, No systolic murmur Extremities: other (Postsurgical dressing not taken down on right foot) Abdomen: normal bowel sounds, non-tender, soft, No distended, No guarding Skin: No erythema Neuro/Psych: alert, normal mood/affect, oriented x 3, No confused - Time Spent With Patient Time Spent with Patient: greater than 25 minutes Time Spent with Patient: Greater than 25 minutes spent on this patients care, greater than 50% of time spent counseling, educating, and coordinating care regarding the above mentioned plan. ICD10 Worksheet Patient Problems: Problems Problem Status Onset Osteomyelitis Acute
[2018-04-24 05:18] LABS: PLATELET COUNT 256 10^3/uL (150-400)
[2018-04-24] MEDS: oxyCODONE IR 5 MG TAB PO PRN (08:54)
[2018-04-24] MEDS: SULFAMETHOX/TMP 800/160 MG 1 TAB PO SCH ×2 (08:54→20:35)
[2018-04-24] MEDS: LISINOPRIL 10 MG TAB PO SCH (08:55)
[2018-04-24] MEDS: SODIUM FERRIC GLUCONAT/SUCROSE 125 MG in NS 100 ML IV SCH (08:55)
[2018-04-24] MEDS: MUPIROCIN 2% 22 GM OINT TP SCH ×3 (10:44→20:36)
--- NOTE | 2018-04-24 11:54 | PCMIDPN ---
Assessment/Plan: Assessment: 62-year-old man with multiple digits of right foot with chronic osteomyelitis status post debridement amputations. Surgical wounds look clean on the right foot no evidence of surrounding cellulitis, and no deep soft tissue infection evident. Continue with oral Bactrim and monitor electrolytes. 1. Right great toe, right 2nd toe, right 4th toe distal osteomyelitis and necrosis; improved 2. 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 Status post right 2nd toe distal phalanx amputation 04/21/2018 4. Homeless Plan: 1. Continue Bactrim 2 double-strength tablets twice daily, if tolerated will need an increase in dose to reach approximately 10 milligrams/kilogram per day 2. Continue to check daily electrolytes to ensure potassium does not increase 3. Discussed in detail potential side effects Bactrim which could rash, antibiotic associated diarrhea, C diff colitis Phu Guadarrama MD Infectious Diseases 04/24/18 11:56 Subjective: He notes no fever or chills, no pain in the right foot. No nausea or diarrhea since starting Bactrim. No rash. Objective: Vital Signs Temp Pulse Resp BP Pulse Ox 36.9 C 61 17 119/57 L 95 04/24/18 11:42 04/24/18 11:42 04/24/18 11:42 04/24/18 11:42 04/24/18 11:42 Laboratory Results 04/24/18 04:55 04/23/18 04:44 04/23/18 04/24/18 04/25/18 05:59 05:59 05:59 Intake Total 500 840 500 Output Total 900 1225 300 Balance -400 -385 200 ESR 37 MM/HR (0-20) H 04/24/18 04:55 C-Reactive Protein 6.0 mg/L (<10.0) 04/21/18 17:40 Medications Generic Name Dose Route Start Last Admin Trade Name Freq PRN Reason Stop Dose Admin Trimethoprim/Sulfamethoxazole 2 ea 04/22/18 21:00 04/24/18 08:54 Bactrim Ds PO 05/22/18 20:59 2 ea BID NOBLE Protocol Microbiology 04/21/18 22:50 Blood Blood Culture - Preliminary 04/21/18 22:47 Blood Blood Culture - Preliminary Laboratory Tests 04/21/18 04/22/18 04/22/18 17:40 06:30 06:30 WBC 5.68 Hgb 10.1 L Plt Count 290 ESR 52 H Potassium 5.2 Creatinine 0.8 04/23/18 04/24/18 04:44 04:55 WBC 6.08 Hgb 9.8 L Plt Count 256 ESR 37 H Potassium 5.1 Creatinine 0.8 - Physical Exam General Appearance: no apparent distress, non-toxic EENT: No scleral icterus Neck: full range of motion, supple Extremities: other (Right foot surgical dressing taken down, wound bed of the right great toe without slough or drainage, no erythema at the debridement edges ; other digits of the right foot with clean debridement areas no drainage no surrounding erythema) Skin: No erythema Neuro/Psych: alert, normal mood/affect, oriented x 3, No confused - Time Spent With Patient Time Spent with Patient: greater than 25 minutes Time Spent with Patient: Greater than 25 minutes spent on this patients care, greater than 50% of time spent counseling, educating, and coordinating care regarding the above mentioned plan. ICD10 Worksheet Patient Problems: Problems Problem Status Onset Osteomyelitis Acute
--- NOTE | 2018-04-24 12:53 | HOSPPROG ---
Hospitalist Progress Note Assessment/Plan: DIAGNOSES: * acute osteomyelitis of R toes * iron deficiency anemia - new dx at this time -no abd of gi/digestive sxs * HTN * Hypoxemic respiratory failure, presumably chronic and stable, tobacco abuse, suspect copd likely present * homelessness PLANS: * continue antibiotics per ID * Ongoing wound care * will need repeat imaging over time/? if will need amputation * Continue IV iron supplement and transition to po tomorrow * Repeat CBC and sed rate * GI consult * will start lisinopril for HTN I examined the patient today together at the bedside with Dr. Nieto, as well as with the wound care nurse SUBJECTIVE: Minimal pain Otherwise feels well Denies any loose or greasy stools, or any other signs of malabsorption Denies any known bleeding OBJECTIVE Vitals reviewed: Blood pressures remain overall bit high, otherwise stable without fever Jewelry Mold Maker, my review: Exam: alert oriented relaxed skin warm dry color ok resps not labored lungs clear BSs heart regular abd soft nondistended nontender, bowel sounds present limbs warm, no edema; wounds unchanged from yesterday's exam, nothing necrotic iv site ok Lab data: Hemoglobin stable at 9.8 ESR is better today at 37 Objective: Vital Signs Temp Pulse Resp BP Pulse Ox 36.9 C 61 17 119/57 L 95 04/24/18 11:42 04/24/18 11:42 04/24/18 11:42 04/24/18 11:42 04/24/18 11:42 Laboratory Results 04/24/18 04:55 04/23/18 04:44 04/23/18 04/24/18 04/25/18 06:59 06:59 06:59 Intake Total 500 840 500 Output Total 900 1225 300 Balance -400 -385 200 ICD10 Worksheet Patient Problems: Problems Problem Status Onset Osteomyelitis Acute
--- NOTE | 2018-04-24 14:06 | PDCONSULT ---
Dairy Farm Operator Note: 04/24/2017 PAD# 3 Assessment: Foot x-ray from yesterday does not show any gas in tissue. Afebrile, VSS, wound michelle/edge advancing on great toe. Plan: continue current therapy. consider re-debriding in next 48 hours.
[2018-04-25] MEDS: SULFAMETHOX/TMP 800/160 MG 1 TAB PO SCH (07:22)
[2018-04-25] MEDS: LISINOPRIL 10 MG TAB PO SCH (07:22)
[2018-04-25] MEDS: MUPIROCIN 2% 22 GM OINT TP SCH ×3 (07:27→23:15)
[2018-04-25] MEDS: oxyCODONE IR 5 MG TAB PO PRN ×2 (07:31→23:24)
[2018-04-25] MEDS: SODIUM FERRIC GLUCONAT/SUCROSE 125 MG in NS 100 ML IV SCH (09:39)
[2018-04-25] MEDS ORDERED: MAGNESIUM HYDROXIDE 30 ML UDCUP PO PRN (12:06)
[2018-04-25] MEDS ORDERED: LACTULOSE 20 GM/30 ML UDCUP PO PRN (12:06)
[2018-04-25] MEDS ORDERED: BISACODYL 10 MG SUPP PR PRN (12:06)
--- NOTE | 2018-04-25 12:08 | PCMIDPN ---
Assessment/Plan: Assessment: Chronic osteomyelitis of the right foot digits 1 through 4. Patient is continuing to be managed with oral Bactrim. Potassium is better today. Homelessness issue factors in to a lot of decisions on treatment. Currently resting comfortably and no clinical change. Plan: 1. Continue oral Bactrim at present dose. 2. Continue to monitor electrolytes and clinical course. 04/25/18 13:19 Subjective: Patient is sleeping soundly in his hospital bed. Did not awaken. No overnight events per RN. Objective: Bactrim p.o. # 3 Vital Signs Temp Pulse Resp BP Pulse Ox 36.6 C 66 16 144/79 H 98 04/25/18 11:36 04/25/18 11:36 04/25/18 11:36 04/25/18 11:36 04/25/18 11:36 Laboratory Results 04/24/18 04:55 04/25/18 05:07 04/24/18 04/25/18 04/26/18 05:59 05:59 05:59 Intake Total 840 2350 Output Total 7568 220 5100 Balance -385 1400 -1800 ESR 37 MM/HR (0-20) H 04/24/18 04:55 C-Reactive Protein 6.0 mg/L (<10.0) 04/21/18 17:40 - Physical Exam General Appearance: WD/WN, no apparent distress, non-toxic Skin: normal color, warm/dry, No rash ICD10 Worksheet Patient Problems: Problems Problem Status Onset Osteomyelitis Acute
--- NOTE | 2018-04-25 14:12 | HOSPPROG ---
Hospitalist Progress Note Assessment/Plan: DIAGNOSES: * acute osteomyelitis of R toes * new hyponatremia today 10 pt drop in 2 days, suspect due to bactrim * iron deficiency anemia - new dx at this time -no abd of gi/digestive sxs * HTN * Hypoxemic respiratory failure, presumably chronic and stable, tobacco abuse, suspect copd likely present * homelessness PLANS: * continue antibiotics per ID - I will review the antibiotic/Na issue with dr Lozano, ? if doxycyline an alternative * repeat Na now, and daily * oral fluid restriction for now * check urine Na * Ongoing wound care * will need repeat imaging over time/? if will need amputation * Fe replacement: transition to po at this time * Repeat CBC and sed rate * GI consult * will start lisinopril for HTN SUBJECTIVE: Minimal pain Otherwise feels well Denies any loose or greasy stools, or any other signs of malabsorption Denies any known bleeding OBJECTIVE Vitals reviewed: stable without fever Exam: alert oriented relaxed skin warm dry color ok resps not labored lungs clear BSs heart regular abd soft nondistended nontender, bowel sounds present limbs warm, no edema; wounds unchanged from yesterday's exam, nothing necrotic iv site ok Lab data: Na decreased today 124 rest of met panel ok Objective: Vital Signs Temp Pulse Resp BP Pulse Ox 36.6 C 66 16 144/79 H 98 04/25/18 11:36 04/25/18 11:36 04/25/18 11:36 04/25/18 11:36 04/25/18 11:36 Laboratory Results 04/24/18 04:55 04/25/18 05:07 04/24/18 04/25/18 04/26/18 06:59 06:59 06:59 Intake Total 840 2350 480 Output Total 6990 819 5148 Balance -385 1400 -1520 ICD10 Worksheet Patient Problems: Problems Problem Status Onset Osteomyelitis Acute
[2018-04-25] MEDS: SENNOSIDES/DOCUSATE SODIUM TAB PO SCH ×2 (15:05→23:14)
[2018-04-25] MEDS: POLYETHYLENE GLYCOL 3350 17 GM PKT PO PRN (15:06)
--- NOTE | 2018-04-25 15:22 | PDCONSULT ---
Engineering Project Designer Note: 04/25/2018 PAD#4 Assessment: Toes right foot further debrided at bedside. Continued improvement noted. Wound on 1st digit continuing heal by contracture. NA low Plan: Continue Bactroban and Bactrim. Keep foot elevated as much as possible. Push SATS to 98% (@5LPM)
[2018-04-25] MEDS: CLINDAMYCIN 150 MG CAP PO SCH (23:15)
[2018-04-25] MEDS: DOXYCYCLINE HYCLATE 100 MG CAP/TAB PO SCH (23:15)
[2018-04-26] MEDS: SODIUM CHLORIDE 1,000 MG TAB PO SCH ×3 (00:10→18:28)
[2018-04-26] MEDS: CLINDAMYCIN 150 MG CAP PO SCH ×2 (06:43→14:32)
[2018-04-26] MEDS: DOXYCYCLINE HYCLATE 100 MG CAP/TAB PO SCH ×2 (07:57→21:47)
[2018-04-26] MEDS: POLYETHYLENE GLYCOL 3350 17 GM PKT PO PRN (07:57)
[2018-04-26] MEDS: LISINOPRIL 10 MG TAB PO SCH (07:57)
[2018-04-26] MEDS: SENNOSIDES/DOCUSATE SODIUM TAB PO SCH ×2 (07:58→21:47)
[2018-04-26] MEDS: MUPIROCIN 2% 22 GM OINT TP SCH ×3 (08:02→21:48)
[2018-04-26] MEDS ORDERED: FERROUS SULFATE 325 MG TAB PO SCH (09:00)
--- NOTE | 2018-04-26 10:27 | SOAPPROG ---
SOAP Progress Note Assessment/Plan: Assessment/Plan: 62yo M admitted with osteomyelitis of R toes 1-4 with frostbite injuries, homelessness Continue local wound care - bactroban, nonstick, gauze Continue oral abx per ID Will continue to follow Appreciate hospitalist management Difficult situation because of noncompliance issues if discharged S: has pain, but is ignoring it. Not walking O: laying in bed, resting comfortably No increased WOB R toe 1-4 with healthy granulation tissue. No erythema dressings reapplied 04/26/18 15:42 Objective: Vital Signs Temp Pulse Resp BP Pulse Ox 36.6 C 58 L 17 145/75 H 100 04/26/18 07:49 04/26/18 07:49 04/26/18 07:49 04/26/18 07:49 04/26/18 07:49 Laboratory Results 04/24/18 04:55 04/26/18 05:01 04/25/18 04/26/18 04/27/18 05:59 05:59 05:59 Intake Total 2350 730 Output Total 026 6967 300 Balance 1400 -5185 -300 ICD10 Worksheet Patient Problems: Problems Problem Status Onset Osteomyelitis Acute
--- NOTE | 2018-04-26 11:36 | ASMTCMCOM ---
CM Note CM Note Notes: OT rec SNF and PT has not been able to eval due to active BR orders. Offered to explore SNF options again today and [facility] bed at d/c, pt adamantly declining both still. Pt wants to return to the streets and reports he will be able to manage wound care and ambulation as long as "it gets to a certain point." Pt on oral antibiotics. Pt referred to [facility], Krystal met w pt today. CM to follow. Date Signed: 04/26/2018 11:35 AM Electronically Signed By:EVERETT Jones
--- NOTE | 2018-04-26 17:57 | PCMIDPN ---
Assessment/Plan: Assessment/Plan: * Osteomyelitis of right foot involving great toe, 2nd toe and 4th toe status post local debridement: Ulcerations and sites of debridement all with healthy- appearing granulation tissue. No active accompanying soft tissue infection present. Bactrim discontinued last evening due to concerns that it was contributing to hyponatremia. Doxycycline and clindamycin were started after Bactrim discontinuation. Think can treat with doxycycline monotherapy at this point in time as most likely pathogen in this setting Staphylococcus aureus and clindamycin significantly more complex for compliance. Ultimately may require additional amputation over time which is unlikely to be modified by ongoing antibiotic therapy. 04/26/18 17:54 Subjective: Patient without specific complaints other than some residual right-sided foot pain. Objective: Vital Signs Temp Pulse Resp BP Pulse Ox 37.0 C 64 17 111/60 98 04/26/18 16:00 04/26/18 16:00 04/26/18 16:00 04/26/18 16:00 04/26/18 16:00 Laboratory Results 04/24/18 04:55 04/26/18 05:01 04/25/18 04/26/18 04/27/18 05:59 05:59 05:59 Intake Total 2350 730 300 Output Total 950 2625 650 Balance 1400 -1895 -350 ESR 37 MM/HR (0-20) H 04/24/18 04:55 C-Reactive Protein 6.0 mg/L (<10.0) 04/21/18 17:40 Doxycycline # 1 Clindamycin # 1 Status post Bactrim x3 days Blood cultures x2 no growth MRI of foot reviewed with Radiology noting changes consistent with osteomyelitis particularly of great toe and 4th toe - Physical Exam General Appearance: alert, no apparent distress EENT: No scleral icterus Respiratory: No respiratory distress Cardiac/Chest: regular rate, rhythm Extremities: inflammation (Debridement site of great toe and ulcerations over 2nd and 4th toe all with clean base and granulation tissue; no active cellulitis present; edema persist of great toe) ICD10 Worksheet Patient Problems: Problems Problem Status Onset Osteomyelitis Acute
--- NOTE | 2018-04-26 18:02 | HOSPPROG ---
Hospitalist Progress Note Assessment/Plan: DIAGNOSES: * acute osteomyelitis of R toes status post bedside amputations of distal phalanges of toes 1 and 2, also an ulcer on 3rd toe - some improvement with decreased drainage from the wounds and ongoing granulation * Hyponatremia clinically euvolemic bedside - Na lower today despite fluid restriction and supplement, - suspect due to bactrim * iron deficiency anemia - new dx at this time -no history of abdominal or gi/digestive sxs, no history of anemia or iron deficiency in past * HTN * Hypoxemic respiratory failure, presumably chronic and stable, tobacco abuse, suspect copd likely present * homelessness PLANS: * continue antibiotics per ID - changed from Bactrim to doxycycline with concerns Bactrim might be cause of hyponatremia * Continue fluid restriction, increase sodium supplements, follow sodium closely * Ongoing wound care * will need repeat imaging of toes over time/? if will need trans met amputation * Fe replacement: Has received 3 doses of IV iron; will not use oral iron now as it can prevent absorption of doxycycline * Once his sodium is settled will contact Gastroenterology for colonoscopy * Continue lisinopril for HTN SUBJECTIVE: Pain at his toes only during dressing changes Feels sleepy but no other new or different symptoms today OBJECTIVE Vitals reviewed: stable without fever Exam: alert oriented relaxed skin warm dry color ok resps not labored lungs clear BSs heart regular abd soft nondistended nontender, bowel sounds present limbs warm, no edema; I examined his wounds on the toes today, there continues to be good granulation, the amount of drainage of thick fluid has decreased remarkably since 2 days ago iv site ok Lab data: Na further decreased today 122 Objective: Vital Signs Temp Pulse Resp BP Pulse Ox 37.0 C 64 17 111/60 98 04/26/18 16:00 04/26/18 16:00 04/26/18 16:00 04/26/18 16:00 04/26/18 16:00 Laboratory Results 04/24/18 04:55 04/26/18 05:01 04/25/18 04/26/18 04/27/18 06:59 06:59 06:59 Intake Total 2350 730 300 Output Total 924 5762 650 Balance 1400 -0218 -350 - Time Spent With Patient Time Spent with Patient: greater than 35 minutes Time Spent with Patient: Greater than 35 minutes spent on this patients care, greater than 50% of time spent counseling, educating, and coordinating care regarding the above mentioned plan. ICD10 Worksheet Patient Problems: Problems Problem Status Onset Osteomyelitis Acute
[2018-04-26] MEDS: oxyCODONE IR 5 MG TAB PO PRN (23:58)
[2018-04-27] MEDS: SODIUM CHLORIDE 1,000 MG TAB PO SCH ×2 (08:48→18:44)
[2018-04-27] MEDS: DOXYCYCLINE HYCLATE 100 MG CAP/TAB PO SCH ×2 (08:49→22:03)
[2018-04-27] MEDS: SENNOSIDES/DOCUSATE SODIUM TAB PO SCH ×2 (08:49→22:04)
[2018-04-27] MEDS: LISINOPRIL 10 MG TAB PO SCH (08:50)
[2018-04-27] MEDS: MUPIROCIN 2% 22 GM OINT TP SCH ×3 (09:05→22:04)
--- NOTE | 2018-04-27 09:40 | PCMIDPN ---
Assessment/Plan: Assessment: 62-year-old man with multiple digits of right foot with acute osteomyelitis status post debridement amputations. His imaging consistent with acute osteomyelitis complicating possible soft tissue infection of the distal toes on the right foot. After debridement is tissue was healing very well with no active signs for infection. Will limit his antibiotics to 10 days as he did not have an elevation in his CRP or white blood cell count at admission in addition to the fact that he did have amputation of the involved tissue and bone. 1. Right great toe, right 2nd toe, right 4th toe distal osteomyelitis and necrosis; improved 2. 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 Status post right 2nd toe distal phalanx amputation 04/21/2018 4. Homeless Plan: 1. Continue doxycycline 100 mg p.o. Twice daily; stop date 05/01/2018 2. Reviewed in detail potential side effects of doxycycline to include: allergy , rash, nausea, antibiotic-associated diarrhea, Clostridioides difficile colitis , photosensitivity, heart burn, pigmented rash. Phu Guadarrama MD Infectious Diseases 04/27/18 09:37 Subjective: No fever or chills. Denies diarrhea, nausea, rash. Appetite normal. No pain at amputation sites. No new concerns today. Objective: Vital Signs Temp Pulse Resp BP Pulse Ox 36.9 C 57 L 16 130/54 H 93 04/27/18 07:48 04/27/18 07:48 04/27/18 07:48 04/27/18 08:50 04/27/18 07:48 Microbiology 04/21/18 22:47 Blood Culture - Final Blood 04/21/18 22:50 Blood Culture - Final Blood Laboratory Results 04/24/18 04:55 04/27/18 04:47 04/26/18 04/27/18 04/28/18 05:59 05:59 05:59 Intake Total 730 520 Output Total 2625 850 900 Balance -1895 -330 -900 ESR 37 MM/HR (0-20) H 04/24/18 04:55 C-Reactive Protein 6.0 mg/L (<10.0) 04/21/18 17:40 Medications Generic Name Dose Route Start Last Admin Trade Name Freq PRN Reason Stop Dose Admin Doxycycline Hyclate 100 mg 04/25/18 21:00 04/27/18 08:49 Doxycycline Hyclate PO 05/25/18 20:59 100 mg BID [facility] Protocol Discontinued Medications Generic Name Dose Route Start Last Admin Trade Name Mercedes PRN Reason Stop Dose Admin Trimethoprim/Sulfamethoxazole 2 ea 04/22/18 21:00 04/25/18 07:22 Bactrim Ds PO 05/22/18 20:59 2 ea BID [facility] Protocol Clindamycin 150 mg 04/25/18 22:00 04/26/18 14:32 Clindamycin PO 05/25/18 21:59 150 mg Q8HRS [facility] Protocol Laboratory Tests 04/21/18 04/21/18 04/22/18 17:40 17:40 06:30 WBC 5.68 Hgb 10.1 L Plt Count 290 ESR 52 H Creatinine C-Reactive Protein 6.0 04/24/18 04/25/18 04:55 05:07 WBC 6.08 Hgb 9.8 L Plt Count 256 ESR 37 H Creatinine 0.9 C-Reactive Protein - Physical Exam General Appearance: no apparent distress, obese, non-toxic EENT: No scleral icterus Respiratory: No accessory muscle use Neck: full range of motion Extremities: other (Dressing on right foot taken down right great toe with healing soft tissue, no surrounding erythema, fluctuance, or induration. Right 2nd 3rd and 4th toes with exposed soft tissue, healing nicely with no surrounding erythema, induration, or fluctuance) Skin: No erythema Neuro/Psych: alert, normal mood/affect, oriented x 3, No confused - Time Spent With Patient Time Spent with Patient: greater than 25 minutes Time Spent with Patient: Greater than 25 minutes spent on this patients care, greater than 50% of time spent counseling, educating, and coordinating care regarding the above mentioned plan. ICD10 Worksheet Patient Problems: Problems Problem Status Onset Osteomyelitis Acute
--- NOTE | 2018-04-27 12:58 | SOAPPROG ---
SOAP Progress Note Assessment/Plan: Assessment:Assessment/Plan: 62yo M admitted with osteomyelitis of R toes 1-4 with frostbite injuries, homelessness Continue local wound care - bactroban, nonstick, gauze Continue oral abx per ID-changed abx from bactrim to doxy with concern for hyponatremia Continue APAP for pain PRN Will continue to follow periodically Appreciate hospitalist management S: has pain, but is ignoring it. Not walking O: laying in bed, resting comfortably No increased WOB R toe 1-4 with healthy granulation tissue. No erythema dressings reapplied Plan: 04/27/18 14:12 04/27/18 14:16 04/27/18 14:18 04/27/18 18:50 Objective: Vital Signs Temp Pulse Resp BP Pulse Ox 36.9 C 57 L 16 130/54 H 93 04/27/18 07:48 04/27/18 07:48 04/27/18 07:48 04/27/18 08:50 04/27/18 07:48 Microbiology 04/21/18 22:47 Blood Culture - Final Blood 04/21/18 22:50 Blood Culture - Final Blood Laboratory Results 04/24/18 04:55 04/27/18 04:47 04/26/18 04/27/18 04/28/18 05:59 05:59 05:59 Intake Total 730 520 Output Total 5263 112 206 [facility] -1895 -330 -900 ICD10 Worksheet Patient Problems: Problems Problem Status Onset Osteomyelitis Acute
--- NOTE | 2018-04-27 13:04 | HOSPPROG ---
Hospitalist Progress Note Assessment/Plan: DIAGNOSES: * acute osteomyelitis of R toes status post bedside amputations of distal phalanges of toes 1 and 2, also an ulcer on 3rd toe - some improvement with decreased drainage from the wounds and ongoing granulation * Hyponatremia clinically euvolemic bedside - Na better today with fluid restriction and sodium supplement - suspect due to bactrim * iron deficiency anemia - new dx at this time -no history of abdominal or gi/digestive sxs, no history of anemia or iron deficiency in past * HTN * Hypoxemic respiratory failure, presumably chronic and stable, tobacco abuse, suspect copd likely present * homelessness PLANS: * continue antibiotics per ID - changed from Bactrim to doxycycline with concerns Bactrim might be cause of hyponatremia * Continue fluid restriction, increase sodium supplements, follow sodium closely * Ongoing wound care * will need repeat imaging of toes over time/? if will need trans met amputation * Fe replacement: Has received 3 doses of IV iron; will not use oral iron now as it can prevent absorption of doxycycline (can start oral iron after finished antibiotics) * At this time with sodium stabilizing will contact Dr. Hall to try and set up colonoscopy/egd for tomorrow or next day * Continue lisinopril for HTN SUBJECTIVE: Pain at his toes only during dressing changes Feels sleepy but no other new or different symptoms today OBJECTIVE Vitals reviewed: stable without fever Exam: alert oriented relaxed skin warm dry color ok resps not labored lungs clear BSs heart regular abd soft nondistended nontender, bowel sounds present limbs warm, no edema; I examined his wounds on the toes today, there continues to be good granulation, the amount of drainage of thick fluid has decreased remarkably since 2 days ago iv site ok Lab data: Na increased to 127 today Objective: Vital Signs Temp Pulse Resp BP Pulse Ox 36.9 C 57 L 16 130/54 H 93 04/27/18 07:48 04/27/18 07:48 04/27/18 07:48 04/27/18 08:50 04/27/18 07:48 Microbiology 04/21/18 22:47 Blood Culture - Final Blood 04/21/18 22:50 Blood Culture - Final Blood Laboratory Results 04/24/18 04:55 04/27/18 04:47 04/26/18 04/27/18 04/28/18 06:59 06:59 06:59 Intake Total 730 520 Output Total 2625 850 900 [facility] -1895 -330 -900 - Time Spent With Patient Time Spent with Patient: greater than 35 minutes Time Spent with Patient: Greater than 35 minutes spent on this patients care, greater than 50% of time spent counseling, educating, and coordinating care regarding the above mentioned plan. ICD10 Worksheet Patient Problems: Problems Problem Status Onset Osteomyelitis Acute
--- NOTE | 2018-04-27 15:55 | PDCONSULT ---
Disease Case Manager Rn Note: [email or web address] p: f: REFERRING PHYSICIAN: I was asked to see the patient in consultation by Dr. Joshua Calixto for a chief complaint of iron deficiency anemia HISTORY OF PRESENT ILLNESS: Mr. Vergara is a 62-year-old male with a history of homelessness who presented with osteomyelitis of his right foot on 04/22/2018. He has a very difficult historian and at first ignored my presence when introducing myself. says he does not have anemia and that the hospital is keeping food away from him. He denies a history of seeing any blood in his stool or having black tarry stools. He says he last smoked and drank alcohol month ago. He denies the use of aspirin or ibuprofen preceding his hospitalization. To his knowledge there is no family history of colorectal cancer. He refuses to drink a prep to further investigate the anemia that he does not have. He thinks the doctors are conspiring to keep food away from him during the hospitalization. PAST MEDICAL HISTORY: Alcohol use, osteomyelitis, cellulitis, head injury due to trauma, hyponatremia this admission PAST SURGICAL HISTORY: left 3rd finger distal amputation HOME MEDICATIONS: None INPATIENT MEDICATIONS: Tylenol 650 mg POQ at bedtime when necessary, Dulcolax rectal 10 mg MT daily when necessary, doxycycline 100 mg by mouth twice a day, lactulose 20 g by mouth 3 times a day when necessary, lisinopril 10 mg by mouth daily, Zofran 4 mg by mouth or IV every 4 when necessary, oxycodone 5-10 mg by mouth every 3, MiraLAX 17 g by mouth daily when necessary, senna 1-2 tabs by mouth twice a day ALLERGIES: NKDA FAMILY HISTORY: No family history colorectal cancer SOCIAL HISTORY Vague historian Yes tobacco use Yes Alcohol use Methamphetamine use ROS I have performed a comprehensive review of systems, which is negative except for pertinent positives and/or pertinent negatives as noted above in the HPI Physical exam: Vitals 7:48 am 36.9 RR 16 HR 57 BP 121/59 CONSTITUTIONAL: alert, unwell appearing, in no distress MENTAL STATUS: alert, oriented to person, place and time PSYCH: paranoid affect depressed, ignores my presence, looks at book while talking to me EYES: pupils equal and reactive extra ocular eye movements intact EARS: right and left ear normal NOSE: normal and patent, no erythema, discharge or polyps MOUTH: mucous membranes moist, pharynx normal without lesions CHEST: clear to auscultation, no wheezes, rales or rhonchi, symmetric air entry CARDIOVASCULAR: normal rate, regular rhythm, normal S1,S2, no murmurs, rubs, clicks or gallops GASTROINTESTINAL: soft, non tender, non distended, no masses or organomegaly NEUROLOGICAL: alert, oriented MUSCULOSKELETAL: did not examine his feet SKIN: normal coloration CURRENT DATA: LABS: 04/25/2017 CBC: WBC 6 HCV 9.8 MCV 79 RDW 19 platelets 256 BMP: Sodium 124 potassium 5 BUN 10 creatinine 0.9 Date 04/22/2018 ferritin 13. ASSESSMENT: Mr. Vergara is a 62 year-old male with iron deficiency anemia. This iron deficiency anemia could be multifactorial including low dietary iron intake, celiac disease, occult gastrointestinal bleeding from an underlying malignancy. I discussed with Mr. Vergara that having low blood counts is an indication for bidirectional endoscopy and at this present time he is refusing to drink clear liquids or take a laxative tomorrow. RECOMMENDATIONS: -Will follow up with the primary team about this further work up -Thank you for this consultation Sincerely, Nai Hall MD [facility]
[2018-04-28] MEDS: SENNOSIDES/DOCUSATE SODIUM TAB PO SCH ×3 (09:38→21:51)
[2018-04-28] MEDS: DOXYCYCLINE HYCLATE 100 MG CAP/TAB PO SCH ×2 (09:39→21:50)
[2018-04-28] MEDS: LISINOPRIL 10 MG TAB PO SCH (10:32)
[2018-04-28] MEDS: SODIUM CHLORIDE 1,000 MG TAB PO SCH ×2 (10:32→18:32)
[2018-04-28] MEDS: MUPIROCIN 2% 22 GM OINT TP SCH ×3 (10:47→21:50)
--- NOTE | 2018-04-28 11:51 | PCMIDPN ---
Assessment/Plan: Assessment: 62-year-old man with multiple digits of right foot with acute osteomyelitis status post debridement amputations. His right foot surgical wounds continue to heal well with no evidence for local infection, and no evidence for systemic spread of infection. Limit to 10 total days of antibiotics to complete on 05/01/2018. 1. Right great toe, right 2nd toe, right 4th toe distal acute osteomyelitis and necrosis; improved 2. 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 Status post right 2nd toe distal phalanx amputation 04/21/2018 4. Homelessness Plan: 1. Continue doxycycline 100 mg p.o. Twice daily; stop date 05/01/2018 2. Reviewed in detail potential side effects of doxycycline to include: allergy , rash, nausea, antibiotic-associated diarrhea, Clostridioides difficile colitis , photosensitivity, heart burn, pigmented rash. Phu Guadarrama MD Infectious Diseases 04/28/18 11:50 Subjective: No fever or chills. Denies diarrhea, nausea, rash. Appetite normal. No new concerns today. Objective: Vital Signs Temp Pulse Resp BP Pulse Ox 36.6 C 60 14 134/69 H 91 L 04/28/18 08:00 04/28/18 08:00 04/28/18 08:00 04/28/18 08:00 04/28/18 08:00 Microbiology 04/21/18 22:47 Blood Culture - Final Blood 04/21/18 22:50 Blood Culture - Final Blood Laboratory Results 04/24/18 04:55 04/28/18 05:31 04/27/18 04/28/18 04/29/18 05:59 05:59 05:59 Intake Total 520 1000 Output Total 850 1725 575 Balance -330 -725 -575 ESR 37 MM/HR (0-20) H 04/24/18 04:55 C-Reactive Protein 6.0 mg/L (<10.0) 04/21/18 17:40 Medications Generic Name Dose Route Start Last Admin Trade Name Freq PRN Reason Stop Dose Admin Doxycycline Hyclate 100 mg 04/25/18 21:00 04/28/18 09:39 Doxycycline Hyclate PO 05/25/18 20:59 100 mg BID [facility] Protocol Discontinued Medications Generic Name Dose Route Start Last Admin Trade Name Freq PRN Reason Stop Dose Admin Clindamycin 150 mg 04/25/18 22:00 04/26/18 14:32 Clindamycin PO 05/25/18 21:59 150 mg Q8HRS [facility] Protocol Trimethoprim/Sulfamethoxazole 2 ea 04/22/18 21:00 04/25/18 07:22 Bactrim Ds PO 05/22/18 20:59 2 ea BID [facility] Protocol Vancomycin HCl 2 gm/ Sodium 500 mls @ 250 mls/hr 04/21/18 20:40 04/21/18 20: 47 Chloride IV 04/21/18 22:39 500 mls EDNOW ONE Protocol Vancomycin/Sodium Chloride Confirm 04/21/18 20:40 Vancomycin 1 Gm (Premix) Administered 04/21/18 20:41 Dose 1 gm IV .STK-MED ONE Vancomycin/Sodium Chloride Confirm 04/21/18 20:41 Vancomycin 1 Gm (Premix) Administered 04/21/18 20:42 Dose 1 gm IV .STK-MED ONE Microbiology 04/21/18 22:50 Blood Blood Culture - Final 04/21/18 22:47 Blood Blood Culture - Final Laboratory Tests 04/21/18 04/22/18 04/24/18 17:40 06:30 04:55 WBC 8.10 5.68 6.08 Hgb 11.0 L 10.1 L 9.8 L Plt Count 256 ESR 52 H 37 H - Physical Exam General Appearance: no apparent distress, non-toxic EENT: No scleral icterus Respiratory: No accessory muscle use Neck: full range of motion, supple Extremities: other (Right foot dressing taken down, right great toe healing well with no surrounding erythema, right 2nd 3rd and 4th toes surgical sites healing well with no surrounding erythema) Skin: No erythema Neuro/Psych: alert, oriented x 3, depressed affect, No normal mood/affect - Time Spent With Patient Time Spent with Patient: greater than 25 minutes Time Spent with Patient: Greater than 25 minutes spent on this patients care, greater than 50% of time spent counseling, educating, and coordinating care regarding the above mentioned plan. ICD10 Worksheet Patient Problems: Problems Problem Status Onset Osteomyelitis Acute
--- NOTE | 2018-04-28 13:31 | HOSPPROG ---
Hospitalist Progress Note Assessment/Plan: 62 yo M w frostbite, osteomyelitis acute osteomyelitis of R toes status post bedside amputations of distal phalanges of toes 1 and 2, also an ulcer on 3rd toe - some improvement with decreased drainage from the wounds and ongoing granulation abx thru 05/01, per ID provided w written script if he leaves AMA Hyponatremia clinically euvolemic bedside - Na better today with fluid restriction and sodium supplement - suspect due to bactrim continues to improve iron deficiency anemia - new dx at this time -no history of abdominal or gi/digestive sxs, no history of anemia or iron deficiency in past declined further workup to GI physician declines to discuss plan of care w me HTN Hypoxemic respiratory failure, presumably chronic and stable, tobacco abuse, suspect copd likely present homelessness Subjective: angry, swearing. stating he will leave AMA when "his friend Francis" gets here. declined further discussion Objective: Vital Signs Temp Pulse Resp BP Pulse Ox 36.6 C 60 14 134/69 H 91 L 04/28/18 08:00 04/28/18 08:00 04/28/18 08:00 04/28/18 08:00 04/28/18 08:00 Microbiology 04/21/18 22:47 Blood Culture - Final Blood 04/21/18 22:50 Blood Culture - Final Blood Laboratory Results 04/24/18 04:55 04/28/18 05:31 04/27/18 04/28/18 04/29/18 05:59 05:59 05:59 Intake Total 520 1000 Output Total 850 4793 575 Balance -830 -725 -575 - Physical Exam Constitutional: no apparent distress, appears nourished Eyes: PERRL, anicteric sclera Ears, Nose, Mouth, Throat: moist mucous membranes, hearing normal Cardiovascular: regular rate and rhythym, no murmur, rub, or gallop Respiratory: no respiratory distress, no rales or rhonchi Gastrointestinal: normoactive bowel sounds, soft, non-tender abdomen Genitourinary: no bladder fullness, No reza in urethra Skin: warm Musculoskeletal: full muscle strength ICD10 Worksheet Patient Problems: Problems Problem Status Onset Osteomyelitis Acute
[2018-04-29 07:43] VITALS: BP 127/63
[2018-04-29] MEDS: LISINOPRIL 10 MG TAB PO SCH (08:51)
[2018-04-29] MEDS: DOXYCYCLINE HYCLATE 100 MG CAP/TAB PO SCH (08:51)
[2018-04-29] MEDS: SODIUM CHLORIDE 1,000 MG TAB PO SCH (08:51)
[2018-04-29] MEDS: SENNOSIDES/DOCUSATE SODIUM TAB PO SCH (08:53)
[2018-04-29] MEDS: MUPIROCIN 2% 22 GM OINT TP SCH (09:31)
--- NOTE | 2018-04-29 10:16 | ASMTDCNOTE ---
Case Management Discharge Discharge Order Complete? Answers: Yes Patient to Obtain Answers: Independently Medications Transportation Arranged Answers: Family/Friends Discharge Comments Notes: 04/29/2018 Case Management Note Arranged appointment with Dr. Zimmerman for 05/04 at 1600 at the wound care clinic. [phone]. Provided address for [facility]. Pt PCP is Dr. Jackeline Vivas. Notified [facility] caser in of discharge. [facility] Pt was agreeable and recited the address from memory. Pt friend Francis Galvan [phone] from [facility] [employer] in room. Francis to transport pt. Pt declined any further assistance from case management. Date Signed: 04/29/2018 10:15 AM Electronically Signed By:Becky Arevalo RN
--- NOTE | 2018-04-29 10:19 | ASDISCHSUM ---
Discharge Information Plan Status:Homeless/[facility] Medically Cleared to Leave:04/28/2018 Discharge Date:04/28/2018 CM D/C Disposition:Home, Routine, Self-Care ADT D/C Disposition:Home, Routine, Self-Care Projected Discharge Date:04/28/2018 Transportation at D/C:Friend Discharge Delay Reason: Follow-Up Date:04/28/2018 Discharge Slot: Final Diagnosis: Placement Information Patient Contact Information Contact Name:HOA Relationship: Address: Home Phone: Work Phone: City: Alternate Phone: State/Health Discovery Code: Email: Financial Information Financial Class:Medicaid Primary Plan Desc:[employer] Primary Plan Number:[id number] Secondary Plan Desc: Secondary Plan Number: Assessment Information [employer] Progress Note CM Note CM Note Notes: Patient sent to ED by [facility] RN for possible osteomyelitis. ED report confirms this. Bedside I&D and excision on mummified distal phalanx digits 1&2 performed. ID, Surgery, and perhaps Ortho to see. [place] of foot TBD. I spoke with patient. He reports he's been sleeping outside for 20 years. He has not engaged w any sheltering services d/t rumors of bedbugs ([facility]) and thieves ([facility]). He would rather sleep outside in the places he's established. He notes Francis at [facility] as someone he trusts, and he also is known to the [facility] HOT officer [place]. Regarding his current condition, he does not feel that it will be a problem to manage his foot on the streets. He also reports that he is to have cataract surgery soon. I suggested that a SNF might be perfect to give him time to rehab his foot and his eyes. He was not interested. He seems deeply distrustful of homeless services. Case Management will continue to offer resources to patient; otherwise, we will ensure that he has what he needs to return to the streets. Date Signed: 04/22/2018 12:23 PM Electronically Signed By:Amanda Rod RN LACE LACE Length of stay for Answers: 4-6 days current admission Acuity / Level of Answers: Yes Care: Did the patient have an inpatient admission? # of Emergency department Answers: 1-2 visits in the last 6 months Social determinants Answers: History of substance abuse (ETOH, street drugs, prescription drugs, etc.) Homelessness (street, halfway) Score: 14 Date Signed: 04/29/2018 10:18 AM Electronically Signed By:Becky Arevalo RN [facility] CM Progress Note CM Note CM Note Notes: OT rec SNF and PT has not been able to eval due to active BR orders. Offered to explore SNF options again today and [facility] bed at d/c, pt adamantly declining both still. Pt wants to return to the streets and reports he will be able to manage wound care and ambulation as long as "it gets to a certain point." Pt on oral antibiotics. [facility] CM to follow. Date Signed: 04/26/2018 11:35 AM Electronically Signed By:EVERETT Jones Case Management Discharge Plan Note Case Management Discharge Discharge Order Complete? Answers: Yes Patient to Obtain Answers: Independently Medications Transportation Arranged Answers: Family/Friends Discharge Comments Notes: 04/29/2018 Case Management Note Arranged appointment with Dr. Zimmerman for 05/04 at 1600 at the wound care clinic. [phone]. Provided address for [facility]. Pt PCP is Dr. Jackeline Vivas. Notified [facility] porter sample case of discharge. [facility] Pt was agreeable and recited the address from memory. Pt friend Francis Galvan [phone] from [facility] [employer] in room[facility]y [facility] to transport pt. Pt declined any further assistance from case management. Date Signed: 04/29/2018 10:15 AM Electronically Signed By:Becky rAevalo RN Intervention Information Intervention Type:*Incorrect Registration Date of Service:04/21/2018 10:17 AM Patient Type:Observation Staff Member:Thelma Juárez Hours: Discipline: Severity: Comment:
--- NOTE | 2018-04-29 10:44 | PCMIDPN ---
Assessment/Plan: Assessment: 62-year-old man with multiple digits of right foot with acute osteomyelitis status post debridement amputations. Surgical site not examined today as the patient was stressed to leave the hospital. Discussed in detail the importance of clean dressing changes daily in maintaining cleanliness of that right foot until the surgical wounds are completely healed. He states that he does have the ability and a place where he can get clean dressing changes and assistance as needed. 1. Right great toe, right 2nd toe, right 4th toe distal acute osteomyelitis and necrosis; improved 2. 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 Status post right 2nd toe distal phalanx amputation 04/21/2018 4. Homelessness Plan: 1. Continue doxycycline 100 mg p.o. Twice daily; stop date 05/01/2018 2. Reviewed in detail potential side effects of doxycycline to include: allergy , rash, nausea, antibiotic-associated diarrhea, Clostridioides difficile colitis , photosensitivity, heart burn, pigmented rash. 3. Reiterated with patient the importance of maintaining daily clean dressing changes to ensure his foot heals without a superimposed infection Phu Guadarrama MD Infectious Diseases 04/29/18 10:43 Subjective: No fevers or chills overnight. No pain in the right foot. He is dressed in states that he is leaving the hospital today. Upon asking if he has the ability to maintain clean dressing changes as an outpatient he states yes. Objective: Vital Signs Temp Pulse Resp BP Pulse Ox 36.3 C 74 19 127/63 H 92 04/29/18 07:42 04/29/18 07:42 04/29/18 07:42 04/29/18 08:51 04/29/18 07:42 Laboratory Results 04/24/18 04:55 04/29/18 05:06 04/28/18 04/29/18 04/30/18 05:59 05:59 05:59 Intake Total 1000 Output Total 1725 875 300 Balance -725 -875 -300 ESR 37 MM/HR (0-20) H 04/24/18 04:55 C-Reactive Protein 6.0 mg/L (<10.0) 04/21/18 17:40 Medications Generic Name Dose Route Start Last Admin Trade Name Freq PRN Reason Stop Dose Admin Doxycycline Hyclate 100 mg 04/25/18 21:00 04/29/18 08:51 Doxycycline Hyclate PO 05/25/18 20:59 100 mg BID PENDING SALE TO [facility] Protocol - Physical Exam General Appearance: no apparent distress, non-toxic EENT: No scleral icterus Respiratory: No accessory muscle use Neuro/Psych: normal mood/affect, oriented x 3, No confused ICD10 Worksheet Patient Problems: Problems Problem Status Onset Osteomyelitis Acute
--- NOTE | 2018-04-29 16:12 | PDDCSUM ---
Discharge Summary Discharge Summary: HPI/HOSPITAL COURSE 62-year-old man with multiple digits of right foot with acute osteomyelitis status post debridement amputations. The patient was encouraged to stay today but he was asking to leave AMA if not discharged immediately. Surgical site not examined today as the patient was stressed to leave the hospital. Discussed in detail the importance of clean dressing changes daily in maintaining cleanliness of that right foot until the surgical wounds are completely healed. He states that he does have the ability and a place where he can get clean dressing changes and assistance as needed. He will hopefully f/u with a PCP next week. DDX: 1. Right great toe, right 2nd toe, right 4th toe distal acute osteomyelitis and necrosis; improved 2. 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 Status post right 2nd toe distal phalanx amputation 04/21/2018 4. Homelessness 5. Hyponatremia: much improved. 6. JOHAN: refused additional GI w/u Plan: Continue doxycycline 100 mg p.o. Twice daily; stop date 05/01/2018 Exam: NAD AAOX3 RRR CTA B S/NT/ND MEDS: SEE MED REC TOTAL TIME SPENT ON DC IS 35 MINS
--- NOTE | 2018-05-02 10:16 | PQFORM ---
PHYSICIAN QUERY FORM Needs Your Response This query form is being sent to you to assure this patient record is coded properly. Please respond to the question below: AURICULAR ACUPUNCTURIST QUESTION: Dear Doctor Emilia, In your consultation note of 04/21/2018 you document in the Physical Examination that both the right great toe and the right second toe are amputated at the bedside while in the ER. A procedure note is required for minimally invasive, noninvasive and bedside procedures. In order to accurately assign codes for this encounter could you please document a description of the procedure in the patient record? Thank you for your assistance. Scarlett jackson, Marisol SHAH, ASSEMBLING FABRICATOR,[employer], [facility] Health Information Management Fire Protection Engineering Technician/Farmworker Field [employer] [email or web address] INSTRUCTIONS FOR RESPONSE: Answer question by clicking on the "Edit Document" button. Move cursor to area below the stars. When complete, hit "Save." Click on the "Sign" button, then click "Sign" again. Type in your PIN and hit "Enter." MTDD
--- NOTE | 2018-05-03 09:41 | PQFORM ---
PHYSICIAN QUERY FORM Needs Your Response This query form is being sent to you to assure this patient record is coded properly. Please respond to the question below: SPOOL HAULER QUESTION: Dear Dr. Wyatt, The statement 'Hypoxemic respiratory failure , presumably chronic and stable, tobacco abuse, suspect COPD' is documented by Dr. Calixto and Dr. Soto throughout the progress notes. Based on the clinical indicators and your professional judgment, can this statement and these diagnoses be added to the discharge summary? _x____ Yes No Other Thank you for clarifying, JAVAD Villaseñor INSTRUCTIONS FOR RESPONSE: Answer question by clicking on the "Edit Document" button. Move cursor to area below the stars. When complete, hit "Save." Click on the "Sign" button, then click "Sign" again. Type in your PIN and hit "Enter." MTDD
== END 2018-04-29 11:07 | disposition home or self-care (01) | DRG 314 ==
LOC: OBSVTOIN 22:31 → F3N 04-22 09:32
PROVIDERS: ADMIT Student in an Organized Health Care Education/Training Program; ATTEND Family Medicine
PROC: 0Y6R0Z3 Detachment at Right 2nd Toe, Low, Open Approach (ICD-10-PCS; principal; 2018-04-21)
PROC: 0Y6P0Z3 Detachment at Right 1st Toe, Low, Open Approach (ICD-10-PCS; principal; 2018-04-21)
PROC: 0JDQ0ZZ Extraction of Right Foot Subcutaneous Tissue and Fascia, Open Approach (ICD-10-PCS; 2018-04-25)
DX: M86.171 Other acute osteomyelitis, right ankle and foot (principal); I96 Gangrene, not elsewhere classified; J96.11 Chronic respiratory failure with hypoxia; E87.1 Hypo-osmolality and hyponatremia; D50.9 Iron deficiency anemia, unspecified; F12.90 Cannabis use, unspecified, uncomplicated; J44.9 Chronic obstructive pulmonary disease, unspecified; I10 Essential (primary) hypertension; Z72.0 Tobacco use; Z59.0 Homelessness; Z23 Encounter for immunization
CPT/HCPCS: 96374; 97165-GO; A9585; J1885; J2916; J3010; J3370

== ENCOUNTER 2018-05-12 16:57 | Emergency (ER) | payer MEDICAID ==
--- NOTE | 2018-05-12 17:19 | EDPHY ---
H & P Smoking Status: Current every day smoker Time Seen by Provider: 05/12/18 17:15 HPI/ROS: CHIEF COMPLAINT: Altered mental status HISTORY OF PRESENT ILLNESS: The patient is a 62-year-old male who presents emergency department via EMS. Patient was found outside sitting in a puddle. Per bystander report the patient has drank 2 pt of alcohol. The patient denies any specific complaints. Patient's glucose was 89. REVIEW OF SYSTEMS: Unable to obtain a complete review of systems due the patient's altered mental status (Anisha Arzate) Past Medical/Surgical History: Includes osteomyelitis, hyponatremia, alcohol abuse (Anisha Arzate) Physical Exam: Vitals noted GENERAL: Somnolent, opens eyes to voice. HEENT: Eyes normal to inspection, normal pharynx, no signs of dehydration. NECK: Normal, supple. RESPIRATORY: Clear to auscultation bilaterally, no rales, rhonchi or wheezing. CVS: Regular rate and rhythm, no rubs, murmurs, or gallops. ABDOMEN: Soft, nontender, nondistended, no organomegaly. BACK: Normal to inspection, no CVA tenderness. SKIN: Normal color, no rash, warm, dry. No pallor. EXTREMITIES: Patient has scarring on both shins bilaterally. No significant joint swelling. No erythema. No discharge. The patient has lesions on his toes. These appear to be noninfected and healing. NEURO/PSYCH: Somnolent, intoxicated appearing, normal motor sensory exam. No obvious cranial nerve deficit. (Anisha Arzate) Constitutional: Initial Vital Signs Temperature (C) 34.5 C L 05/12/18 16:57 Heart Rate 54 L 05/12/18 16:57 Respiratory Rate 16 05/12/18 16:57 Blood Pressure 144/85 H 05/12/18 16:57 O2 Sat (%) 92 05/12/18 16:57 O2 Delivery Mode Room Air Allergies/Adverse Reactions: No Known Allergies Allergy (Verified 04/21/18 20:54) Home Medications: Medication Instructions Recorded Doxycycline Hyclate [Vibramycin 100 mg PO BID capsule 04/29/18 100 MG (*)] Medical Decision Making ED Course/Re-evaluation: In the emergency department I met EMS on arrival. I took report from the admission specialist. I reviewed the patient's previous medical record. Patient's clothes were removed because they were wet. Patient was warmed. I rechecked the patient while here. He was stable. He had no new complaints. 1944: The patient still somnolent. No complaints. Repeat temperature 36.2 degrees. 2099: Patient is signed out at change of shift to Dr. Sands. Once the patient metabolizes his alcohol and is able to ambulate he will be discharged. ( Anisha Arzate) 2199: Patient is ambulatory. [facility]. (Phu Sands) Differential Diagnosis: My differential includes but is not limited to alcohol intoxication, closed- head injury, electrolyte abnormality, sugar abnormality, hypothermia (Anisha Arzate) Departure - Departure Disposition: Home, Routine, Self-Care Clinical Impression: Alcohol intoxication Qualifiers: Complication of substance-induced condition: uncomplicated Qualified Code(s): F10.920 - Alcohol use, unspecified with intoxication, uncomplicated Hypothermia Qualifiers: Encounter type: initial encounter Qualified Code(s): T68.XXXA - Hypothermia, initial encounter Condition: Good Instructions: Alcohol Intoxication (ED), Acute Hypothermia (ED) Additional Instructions: Return with worsening symptoms or any other concerns. Referrals: [facility],. [Clinic] - 5-7 days, call for appt.
[2018-05-12] MEDS ORDERED: CHLORDIAZEPOXIDE 25MG PREPK#6 BTL TAKEHOME ONE (22:20)
[2018-05-13 00:16] VITALS: BP 126/84
== END 2018-05-13 00:16 | disposition home or self-care (01) ==
LOC: EDUNIT#
DX: F10.920 Alcohol use, unspecified with intoxication, uncomplicated (principal); T68.XXXA Hypothermia, initial encounter; X31.XXXA Exposure to excessive natural cold, initial encounter; Y99.9 Unspecified external cause status

== ENCOUNTER 2018-08-23 17:34 | Inpatient (IN) | payer MEDICAID | END 2018-09-02 13:29 | LOC: F3E 08-29 14:31 → F2N 21:34 ==